=== PATIENT | male | born 1980 | race Hispanic/Latino ===

== ENCOUNTER 2019-06-13 08:26 | Emergency (ER) | payer SELFPAY ==
[2019-06-13] MEDS ORDERED: Ketorolac Tromethamine 30 MG/ML VIAL ONE (09:14)
[2019-06-13] MEDS ORDERED: Ondansetron ODT 4 MG TAB ONE (09:14)
== END 2019-06-13 09:43 | disposition home or self-care (01) ==
LOC: MADERS 08:26
DX: M10.9 Gout, unspecified (principal)
CPT/HCPCS: 96372; 99283; J1885; Q0162